=== PATIENT | female | born 1960 | race Caucasian/White ===

== ENCOUNTER 2024-12-05 12:11 | Outpatient (CLI) | payer OTHER ==
[~2024-12-05 12:11] MED LIST: Iopamidol 370 76% 100 ML VIAL ONE
[2024-12-05 13:33] LABS: Estimated GFR - POC 56.0
== END 2024-12-05 12:12 | disposition home or self-care (01) ==
LOC: CT 12:11
PROVIDERS: ATTEND Family Medicine
DX: J44.9 Chronic obstructive pulmonary disease, unspecified (principal); R93.89 Abnormal findings on diagnostic imaging of other specified body structures
CPT/HCPCS: 36415; 71260; 82565; Q9967